=== PATIENT | female | born 1965 | race Caucasian/White ===

== ENCOUNTER 2023-11-19 14:38 | Inpatient (IN) ==
--- NOTE | 2023-11-19 14:52 | Emergency Department Note ---
Impression & Plan Saddle pulmonary embolus, Chest pain, Hypoxia ED Provider Note NAME: STEVEN PEREIRA AGE: 58 SEX: F : 1965 ARRIVES VIA: Ambulance INFORMANT: Patient, EMS ED PROVIDER(S): Chandrakant Guevara DO CHIEF COMPLAINT: Chest pain HPI: Patient is a 58-year-old female who presented to the emergency department with chest pain. The patient describes difficulty breathing. She cannot get a deep breath in. She is currently being treated for a left sided tibial plateau fracture. The patient has a knee immobilizer in place. She does have a remote history of DVT in the past. The patient was found to be tachycardic and hypoxic by the prehospital personnel prior to arrival. Patient denies having any nausea or vomiting. She denies having any swelling in her leg. The patient has not been seen by her family doctor before the symptoms. ROS: See above HPI for pertinent positives & negatives. A total of 10 systems reviewed and were otherwise negative. PAST MEDICAL HISTORY: See Below PAST SURGICAL HISTORY: See Below FAMILY HISTORY: See Below SOCIAL HISTORY: See Below HOME MEDICATIONS: See Below ALLERGIES: See Below VITALS: See Below PHYSICAL EXAMINATION: GENERAL: The patient is awake and alert. The patient is anxious. EYES: The conjunctivae are clear. The pupils are round and reactive. EARS, NOSE, MOUTH AND THROAT: The nose is without any evidence of any deformity. NECK: The neck is nontender and supple. RESPIRATORY: Splinting respirations were noted. There was no conversational dyspnea. CARDIOVASCULAR: Tachycardic and regular heart sounds were noted to auscultation. There is no definite murmur. GASTROINTESTINAL: The abdomen is soft. Abdomen is nontender. MUSCULOSKELETAL/EXTREMITIES: There is a left knee immobilizer in place. SKIN: Skin is warm and dry. There is no significant pedal edema. NEUROLOGIC: Patient is awake alert and oriented x3 MEDICAL DECISION MAKING: The patient is a 58-year-old female who presented to the emergency department for an evaluation of chest pain. The patient remained via ambulance. She has an injury to her lower extremity and she has had a knee immobilizer on. She does have a remote history of DVT after orthopedic injury in the past. The patient was hypoxic and tachycardic. I discussed the patient's laboratory and radiographic studies with her. She was found to have signs of pulmonary embolism with significant clot burden and saddle embolus on CT scan of the chest. She was started on IV heparin. I discussed her condition with the on- call [facility] hospitalist. They discussed the case with the clearing inspector and the decision was made to give the patient thrombolytics for massive pulmonary embolism. The patient was reevaluated multiple times. She was significantly improved on reevaluation. She continued to have tachycardia but her hypotension improved somewhat. Triage Nursing notes reviewed. Prior medical records reviewed Vital Signs: reviewed and remarkable for hypotension tachycardia and hypoxia. Differential diagnosis: Cardiac ischemia, aortic dissection, pulmonary embolism, pneumothorax, pneumonia, pericarditis, myocarditis, esophageal rupture, GERD, cholecystitis, pancreatitis, musculoskeletal, as well as other pathologies. ER treatment provided: See below Diagnostics interpreted by me: ECG: EKG was obtained in the emergency department. My interpretation is sinus tachycardia 139 bpm. There is no ectopy. Nonspecific ST segment abnormalities are noted. No previous tracing was available. Prehospital EKG was reviewed. My interpretation is sinus tachycardia 124 bpm. There is no ectopy. Suspect lead reversal with Q waves noted in leads I and aVL, otherwise this compares similar to the EKG obtained in the emergency department. Cardiac Monitoring: An order was placed for continuous cardiac monitoring. The monitor shows a rate of 127 bpm with sinus tachycardia. Laboratory studies: As stated above and show below. Imaging studies: See below. Radiographic imaging was reviewed by myself Consultation(s): I discussed this case with Dr. Sheriff who is on-call for the hospitalist group. ED COURSE: Procedures: none Critical Care: I have personally spent greater than 55 minutes of critical care time in the direct management of this patient. This includes bedside care, interpretation of diagnostic studies, and testing, discussion with consultants, patient, and family members, and other required patient management activities. This 55 minutes is in excess of all separately billable procedures. Past Med/Surg History Problem List (Updated 11/19/23 @ 19:06 by Chandrakant Guevara DO) Hypoxia (Acute) Chest pain (Acute) Morbid obesity with BMI of 50.0-59.9, adult Pre-diabetes Saddle pulmonary embolus (Acute) Closed fracture of left tibial plateau Medical History DVT (deep venous thrombosis) Social History Smoking Status: Current every day smoker Tobacco Type: Cigarettes Cigarettes Per Day: 10; Second Hand Exposure: No; Hx Alcohol Use: No Hx Substance Use: No Preferred Language: Wolof Communication Ability: Effective Beliefs That Will Affect Care: None Current Living Situation: Alone Feels Safe at Home: Yes Assistive Devices: Denture - Lower Home Meds Home Medications Medication Instructions Recorded Confirmed No Known Home Medications 11/19/23 11/19/23 Results & Data (ED) Vital Signs Vital Signs - 24 hr 11/19/23 14:44 11/19/23 14:44 11/19/23 14:45 Temperature 36.5 C Temperature Source Oral Pulse Rate 126 H Respiratory Rate 22 Respiratory Effort / Characteristics Short of Breath SOB on Exertion Respiratory Depth Normal Blood Pressure 94/71 L Blood Pressure Mean 78 Pulse Oximetry 96 89 L Oxygen Delivery Method Nasal Cannula Room Air Oxygen Flow Rate 2 Sepsis Recent Fever Within 48 Hours No Sepsis New/Unexplained Change in Mental Status No Sepsis Action Taken by Nursing Physician Notified 11/19/23 15:42 Temperature Temperature Source Pulse Rate 117 H Respiratory Rate Respiratory Effort / Characteristics Respiratory Depth Blood Pressure Blood Pressure Mean Pulse Oximetry Oxygen Delivery Method Oxygen Flow Rate Sepsis Recent Fever Within 48 Hours Sepsis New/Unexplained Change in Mental Status Sepsis Action Taken by Assisted Medications Current Medication List: was personally reviewed by me Laboratory Data Attestation: I reviewed the patient's lab results. 11/19/23 14:45 11/19/23 14:45 Lab Results 11/19/23 11/19/23 11/19/23 Range/Units 14:45 14:55 14:57 WBC 9.69 (4.8-10.8) K/ul RBC 5.58 H (4.20-5.40) M/uL Hgb 15.5 (12.0-16.0) g/dl POC Hgb 16.7 H (12.0-16.0) g/dl Hct 48.0 H (37.0-47.0) % POC Hct 49 H (37-47) % MCV 86.0 (80.0-100.0) fL MCH 27.8 (25.0-34.0) pg MCHC 32.3 (32.0-36.0) g/dL RDW Std Deviation 45.6 (36.4-46.3) fL RDW Coeff of Osvaldo 14.4 (11.5-14.5) % Plt Count 214 (130-400) K/uL MPV 9.2 L (9.4-12.4) fL Immature Gran % (Auto) 0.3 % Neut % (Auto) 73.4 % Lymph % (Auto) 17.8 % Kingfisher % (Auto) 6.7 % Eos % (Auto) 1.3 % Baso % (Auto) 0.5 % Neut # (Auto) 7.11 H (1.40-6.50) K/uL Lymph # (Auto) 1.72 (1.20-3.40) K/uL Kingfisher # (Auto) 0.65 H (0.11-0.59) K/uL Eos # (Auto) 0.13 (0.00-0.50) K/uL Baso # (Auto) 0.05 (0.00-0.20) K/uL Immature Gran # (Auto) 0.03 (0.01-0.20) K/uL PT 10.8 (9.0-12.0) Seconds INR 1.0 (0.9-1.1) APTT 28 (21-31) Seconds PTT Ratio 1.0 POC Sodium 138 (135-144) mmol/L Sodium 137 (136-145) mmol/L POC Potassium 4.1 (3.3-5.0) mmol/L Potassium 4.1 (3.5-5.1) mmol/L POC Chloride 104 (101-112) mmol/L Chloride 105 (98-107) mmol/L Carbon Dioxide 26 (21-32) mmol/L POC Total CO2 24 (24-31) mmol/L Anion Gap 6 (3-11) POC Anion Gap 15.0 L (16-25) mmol/L POC BUN 15 (7-18) mg/dl BUN 16 (6-23) mg/dl Creatinine 0.61 (0.6-1.2) mg/dl POC Creatinine 0.6 (0.6-1.3) mg/dl Est Cr Clr Drug Dosing 156.8 ml/min Est GFR ( Amer) 117.5 ml/min Est GFR (Non-Af Amer) 101.3 ml/min BUN/Creatinine Ratio 26.2 H (10-20) Glucose 115 H (70-99(Fasting)) mg/dl POC Glucose (other) 118 H (70-99) mg/dl Calcium 9.1 (8.6-10.3) mg/dl POC Ioniz Calcium Bong 1.19 (1.12-1.32) mmol/l Total Bilirubin 0.4 (0.2-1.0) mg/dl AST 15 (13-39) U/L ALT 11 (7-52) U/L Alkaline Phosphatase 33 L (34-104) U/L Troponin I High Sens 557.8 H* (0-14) pg/ml Total Protein 7.5 (6.0-8.3) gm/dl Albumin 4.0 (3.4-5.0) gm/dl Globulin 3.5 (2.5-4.0) gm/dl Albumin/Globulin Ratio 1.1 (0.9-2) Lipase 11 (11-82) U/L SARS-CoV-2 (PCR) NEGATIVE (Negative) Influenza Type A (PCR) Negative (Neg) Influenza Type B (PCR) Negative (Neg) RSV (RT-PCR) Negative (Neg) Administered Medications Miscellaneous (Icu Protocol For Hyperglycemia) 1 each N/A ACHS ARTHUR Stop: 11/21/23 16:29 Last Admin: 11/19/23 18:00 Dose: Not Given Documented By: GPF Discontinued Medications Heparin Sodium (Porcine) (Heparin Sod (Porcine) 1000 Unit/Ml) 1 units IV NOW ONE Stop: 11/19/23 15:59 Last Admin: 11/19/23 16:48 Dose: Not Given Documented By: ANGUS Heparin Sodium/Dextrose (Heparin Iv Adult Wt-Based Standard W/ Initial Bolus Protocol) 1 each IV Q15M [facility]; Protocol Stop: 11/19/23 16:46 Last Admin: 11/19/23 16:49 Dose: Not Given Documented By: Admin: 11/19/23 16:49 Dose: Not Given Documented By: Admin: 11/19/23 16:49 Dose: Not Given Documented By: Admin: 11/19/23 16:48 Dose: Not Given Documented By: ANGUS Sodium Chloride (Nss) 500 mls @ 999 mls/hr IV .Q31M STA Stop: 11/19/23 15:17 Last Infusion: 11/19/23 16:48 Dose: Infused Documented By: Admin: 11/19/23 16:17 Dose: 999 mls/hr Documented By: ANGUS Sodium Chloride (Nss) 1,000 mls @ 999 mls/hr IV .Q1H1M ONE Stop: 11/19/23 16:42 Last Infusion: 11/19/23 18:00 Dose: Infused Documented By: Admin: 11/19/23 16:16 Dose: 999 mls/hr Documented By: ANGUS Heparin Sodium/Dextrose (Heparin Sodium/Dextrose) 25,000 units in 500 mls @ 0.02 mls/hr IV .Q24H ARTHUR; Protocol Stop: 12/19/23 15:59 Last Admin: 11/19/23 16:48 Dose: Not Given Documented By: ANGUS Alteplase, Recombinant 50 mg/ (EMPTY BAG) 50 mls @ 25 mls/hr IV NOW ONE; Protocol Stop: 11/19/23 18:59 Last Infusion: 11/19/23 18:41 Dose: Infused Documented By: Admin: 11/19/23 17:29 Dose: 25 mls/hr Documented By: ANGUS Ioversol (Optiray 320 125ml) 119 ml IV ONCE ONE Stop: 11/19/23 15:37 Last Admin: 11/19/23 15:37 Dose: 119 ml Documented By: COURTNEY Miscellaneous Information (Dc All Anticoagulants ) 1 each N/A NOW STA Stop: 11/19/23 16:43 Last Admin: 11/19/23 18:04 Dose: 1 each Documented By: JORGE Sodium Chloride (Sodium Chloride 0.9% 50 Ml Bag) 50 ml IV NOW ONE Stop: 11/19/23 17:01 Last Admin: 11/19/23 18:40 Dose: 50 ml Documented By: JORGE Imaging Data Attestation: I personally reviewed and interpreted this imaging study as follows: My Impression: CT angiography of the chest was obtained in the emergency department. My interpretation is saddle pulmonary embolism, final report below. Radiologist's Impression: Chest CTA 11/19/23 14:47 CT angio chest PE protocol CT DOSE: 915.23 mGy.cm HISTORY: 58 years-old Female with Chest Pain, eval for PE. Acute chest pain with shortness of breath TECHNIQUE: Multiple CTA images of the chest were obtained after the intravenous administration of 119 ml Optiray. Coronal and sagittal MIPS were obtained from the axial data set and were submitted for review. All measurements were obtained according to NASCET criteria. A dose lowering technique was utilized adhering to the principles of ALARA. COMPARISON: None. FINDINGS: CTA: Heart is normal in size. No pericardial effusion or thoracic aortic aneurysm. Extensive acute pulmonary emboli is a large central embolus with involvement of the bilateral lobar, segmental and subsegmental branches. There is straightening of the intraventricular septum. CT CHEST: Unremarkable thyroid. Bilateral axillary chain lymphadenopathy includes a 2.7 x 1.5 cm right axillary lymph node. Borderline enlarged subcarinal and hilar lymph nodes. No pneumothorax, pleural effusion, airspace consolidation or pulmonary edema. No suspicious pulmonary nodules or masses. Central airways are patent. Small hiatal hernia. No acute upper abdominal abnormality. No acute fracture. IMPRESSION: 1. Extensive pulmonary emboli including a sagittal embolus with right heart strain. 2. No pleural effusion or pulmonary infarct. 3. Nonspecific bilateral axillary chain lymphadenopathy. ACT 112: Negative or not required by law. The above report was generated using voice recognition software. It may contain grammatical, syntax or spelling errors. Electronically signed by: Jett Garcia M.D. 11/19/2023 4:05 PM Discharge Plan Visit Data Chief Complaint: Cardiac Assessment ED Provider: Chandrakant Guevara Discharge Problem: Saddle pulmonary embolus, Chest pain, Hypoxia Patient Disposition: Admitted As Inpatient Discharge Problem: Saddle pulmonary embolus Qualifiers: Chronicity: acute Acute cor pulmonale presence: with acute cor pulmonale Q ualified Code(s): I26.02 - Saddle embolus of pulmonary artery with acute cor pulmonale Chest pain Qualifiers: Chest pain type: unspecified Qualified Code(s): R07.9 - Chest pain, unspecified
[2023-11-19 15:07] LABS: iSTAT Creatinine 0.6 mg/dl (0.6-1.3); iSTAT Hemoglobin 16.7 g/dl (12.0-16.0); iSTAT Ionized Calcium 1.19 mmol/l (1.12-1.32); iSTAT Potassium 4.1 mmol/L (3.3-5.0)
[2023-11-19 15:22] LABS: Basophils # (auto) 0.05 K/uL (0.00-0.20); Basophils % (auto) 0.5 %; Eosinophils # (auto) 0.13 K/uL (0.00-0.50); Eosinophils % (auto) 1.3 %; Hemoglobin 15.5 g/dl (12.0-16.0); Immature Granulocytes # (auto) 0.03 K/uL (0.01-0.20); Immature Granulocytes % (auto) 0.3 %; Lymphocytes # (auto) 1.72 K/uL (1.20-3.40); Lymphocytes % (auto) 17.8 %; Mean Corpuscular Hemoglobin 27.8 pg (25.0-34.0); Mean Corpuscular Hgb Conc 32.3 g/dL (32.0-36.0); Mean Platelet Volume 9.2 fL (9.4-12.4); Monocytes # (auto) 0.65 K/uL (0.11-0.59); Monocytes % (auto) 6.7 %; Neutrophils # (auto) 7.11 K/uL (1.40-6.50); Neutrophils % (auto) 73.4 %; Platelet Count 214 K/uL (130-400); RDW Coefficient of Variation 14.4 % (11.5-14.5); RDW Standard Deviation 45.6 fL (36.4-46.3); Red Blood Count 5.58 M/uL (4.20-5.40); White Blood Count 9.69 K/ul (4.8-10.8)
[2023-11-19 15:27] LABS: Albumin Globulin Ratio 1.1 (0.9-2); BUN Creatinine Ratio 26.2 (10-20); Bilirubin,Total 0.4 mg/dl (0.2-1.0); Calcium 9.1 mg/dl (8.6-10.3); Creatinine Clr Calc Pharmacy 156.8 ml/min; Est GFR (African American) 117.5 ml/min; Est GFR (Non-African American) 101.3 ml/min; Globulin 3.5 gm/dl (2.5-4.0); Potassium 4.1 mmol/L (3.5-5.1); Total Protein 7.5 gm/dl (6.0-8.3)
[2023-11-19] MEDS: OPTIRAY 320 125ml IV ONE (15:37)
[2023-11-19 15:40] LABS: Troponin I High Sensitivity 557.8 pg/ml (0-14)
[2023-11-19 15:41] LABS: Influenza A virus by PCR Negative (Neg); Influenza B virus by PCR Negative (Neg); RSV by PCR Negative (Neg); SARS CoV2 RNA(COVID-19) Ceph NEGATIVE (Negative)
[2023-11-19] MEDS ORDERED: Heparin IV Adult Wt-Based Standard w/ INITIAL Bolus Protocol IV STA (15:42)
[2023-11-19 15:43] LABS: Partial Thromboplastin Time 28 Seconds (21-31); Prothrombin Time 10.8 Seconds (9.0-12.0)
--- NOTE | 2023-11-19 15:57 | History & Physical Report ---
Date of Service November 19, 2023 Assessment & Plan (1) Saddle pulmonary embolus: Plan: Acute Massive PE - hypotensive on arrival to ER 94/71, saddle PE on CTA with suspected acute migration due to sudden onset of symptoms - Sudden onset of dyspnea, hypoxia, and chest discomfort ~12:00pm 11/19/23. Pt w/ LEFT leg immobilized and with swelling after a knee injury. -No contraindications to thrombolysis no known history of ICH, no known history of AVM, no intracranial neoplasm, no history of ischemic stroke, no aortic dissection seen, no recent bleeding, no surgery in the last 30 days - Discussed w/ patient, and with ditch inspector. Due to hypotension, large clot burden, and significant heart strain consistent with massive PE (although BP borderline and not strictly <90) did discuss risks/benefits of thrombolytic therapy. On shared decision making will pursue half dose TPA and admit to ICU. Blood consent signed. - SPO2 improved on oxygen, but conversationally dyspneic Half dose TNK ordered. Once anti- Xa falls below 0.4 May start heparin GTT full dose nomogram Troponin elevated consistent with heart strain, troponin trended, echo ordered. Chest pain-free at time of admission. Fibrinogen level ordered (2) Pre-diabetes: Plan: PreDM - History of preDM, not on any antiglycemics - A1C pending - ICU hyperglycemia protocol (3) Closed fracture of left tibial plateau: Plan: L Knee Injury - Pt reports she had a left distal knee injury on November 01, reportedly a kneecap/lower leg fracture. Following with Dr. Leavitt and pending a CT as outpatient - Pt aware of risk of bleeding w/ injury and TNKase as above. >7 days from injury. Plan Diet: Heart healthy, carb consistent Disposition: ICU CODE STATUS: Full code DVT prophylaxis: Anticoagulated History of Present Illness Primary Care Provider: NO PCP 58yo F who presented with chest pain, shortness of breath, trop 560. Recommended for admission for acute PE. Seen at the bedside. She reports November 01 she slipped and fell to her left knee and broke part of her knee. Did not require cast but has been in an immobilizer since due to this injury. Is following with Dr. Leavitt at [facility] , had an x- ray, and is pending a outpatient CT for reassessment. She does use tobacco products. She does not have a history of CO or heart disease. No known sleep apnea. She did have a blood clot after a knee injury as a teenager, think she may have been on an OCP at the time. BMI 51.3. She reports that at around 12-12 30 she had she had sudden onset of severe shortness of breath, some chest discomfort, and even conversation caused her to be more short of breath. She was initially hypotensive in the ER. She reports after laying back and being calm she felt a little better and her chest pain resolved, but remains with severe shortness of breath on exertion and conversation. She has no history of stroke. No surgery in the last 30 days. Denies history of spine surgery. No history of bleeding or bleeding problems and has never had a blood transfusion. No history of cancer, neoplasm, or AVMs to her knowledge. She reports her only medical issue is prediabetes. Blood pressure is usually normal to slightly elevated but is not on antihypertensives. Given her acute onset of symptoms, hypotension of 94/71, tachycardia, and saddle PE with evidence of heart strain thrombolysis was discussed with patient. Risk and benefits of full dose, half dose thrombolysis versus anticoagulation alone were discussed. Risks including bleeding, need for blood transfusion, bleeding from her left knee injury, and rare incidence of intracranial bleed were reviewed. Potential benefits including reduction of clot burden which may both improve blood pressure and dyspnea, with the caveat that while her blood pre ssure was not less than 90 was borderline on initial assessment and she is significantly dyspneic even with conversation were reviewed. On shared decision making patient would like to pursue half dose TNKase therapy. Medical History: Reviewed Medications: Reviewed Surgical History: Reviewed Family history: Reviewed Allergies: Reviewed Social History: History of tobacco use. Denies alcohol use Code Status: Full code Home Medications Medication Instructions Recorded Confirmed Type No Known Home Medications 11/19/23 11/19/23 History Past Med/Surg History Problem List Pre-diabetes Saddle pulmonary embolus Closed fracture of left tibial plateau Medical History DVT (deep venous thrombosis) Social History Smoking Status: Current every day smoker Tobacco Type: Cigarettes Preferred Language: Citizen Of [place] Feels Safe at Home: Yes Physical Exam Physical Exam: General: A&Ox3. NAD. Cooperative. Conversationally dyspneic HEENT: Atraumatic, normocephalic. Vision and hearing grossly intact Pulm: Diminished but grossly clear. On nasal cannula Cardiac: regular, tachycardic. , -mrg. Radial pulses intact and symmetrical. Abdominal: Nontender, nondistended, soft. BS present. Ext: Left lower extremity in knee immobilizer. Obese. No pitting edema. Results & Data Results & Data Vital Signs (Past 12 Hours) Vital Signs Temp Pulse Resp BP Pulse Ox O2 Del Method O2 Flow Rate 11/19/23 15:42 117 H 11/19/23 14:45 89 L Room Air 11/19/23 14:44 36.5 C 126 H 22 94/71 L 96 Nasal Cannula 2 PG Care Time/CCT Total # of Minutes Spent Total Time Spent with Patient: Total time spent is greater than 50% in coordination of care (as documented) at patient's floor/unit and/or counseling patient: Coding Level of Care Code 74252 INT INP/OBS CARE 3/75MIN Diagnoses Saddle pulmonary embolus I26.92 Pre-diabetes R73.03 Closed fracture of left tibial plateau S82.142A
--- NOTE | 2023-11-19 16:06 | CT Scan Report ---
CT angio chest PE protocol CT DOSE: 915.23 mGy.cm HISTORY: 58 years-old Female with Chest Pain, eval for PE. Acute chest pain with shortness of breat h TECHNIQUE: Multiple CTA images of the chest were obtained after the intravenous administration of 119 ml Optiray. Coronal and sagittal MIPS were obtained from the axial data set and were submitted for review. All measurements were obtained according to NASCET criteria. A dose lowering technique was u tilized adhering to the principles of ALARA. COMPARISON: None. FINDINGS: CTA: Heart is normal in size. No pericardial effusion or thoracic aortic aneurysm. Extensive acute pulmona ry emboli is a large central embolus with involvement of the bilateral lobar, segmental and subsegmen mitra branches. There is straightening of the intraventricular septum. CT CHEST: Unremarkable thyroid. Bilateral axillary chain lymphadenopathy includes a 2.7 x 1.5 cm right axillary lymph node. Borderline enlarged subcarinal and hilar lymph nodes. No pneumothorax, pleural effusion, airspace consolidation or pulmonary edema. No suspicious pulmonary nodules or masses. Central airway s are patent. Small hiatal hernia. No acute upper abdominal abnormality. No acute fracture. IMPRESSION: 1. Extensive pulmonary emboli including a sagittal embolus with right heart strain. 2. No pleural effusion or pulmonary infarct. 3. Nonspecific bilateral axillary chain lymphadenopathy. ACT 112: Negative or not required by law. The above report was generated using voice recognition software. It may contain grammatical, syntax o r spelling errors. Electronically signed by: Jett Garcia M.D. 11/19/2023 4:05 PM
[2023-11-19] MEDS: SODIUM CHLORIDE 0.9% 1,000 ML IV ONE (16:16)
[2023-11-19] MEDS: SODIUM CHLORIDE 0.9% 500 ML IV STA (16:17)
[2023-11-19] MEDS ORDERED: ALTEPLASE, RECOMBINANT 50 MG in EMPTY BAG 0 ML IV STA (16:41)
[2023-11-19] MEDS ORDERED: DC ALL ANTICOAGULANTS STA (16:41)
[2023-11-19] MEDS ORDERED: SODIUM CHLORIDE 0.9% 50 ML BAG IV STA (16:41)
[2023-11-19] MEDS ORDERED: PRIMARY PLUMSET, PE LINED TUBING, 113 IN, NON-DEHP (2260-0500) IV STA (16:42)
[2023-11-19] MEDS: Heparin IV Adult Wt-Based Standard w/ INITIAL Bolus Protocol IV SCH (16:48)
[2023-11-19] MEDS: HEPARIN SODIUM/DEXTROSE 25,000 UNITS/500 ML BAG IV SCH ×2 (16:48→21:06)
[2023-11-19] MEDS: HEPARIN SOD (PORCINE) 1000 UNIT/ML IV ONE (16:48)
--- NOTE | 2023-11-19 16:56 | Critical Care Consultation ---
Date of Consultation November 19, 2023 Assessment & Plan (1) Morbid obesity with BMI of 50.0-59.9, adult: (2) Saddle pulmonary embolus: (3) Pre-diabetes: (4) Closed fracture of left tibial plateau: Plan Reason Critically Ill: 58-year-old female with saddle pulmonary embolism PLAN: Neuro: Acute anxiety -Tearful and somewhat fearful given critical nature of diagnosis Resp: Exertional dyspnea -Wean supplemental oxygen as tolerated CV: Saddle pulmonary embolism -PESI score 126, category 5 high risk 30-day mortality -Half dose tPA administration and with transition to heparin -Follow-up echocardiogram Fluids/Renal: Hemoconcentrated -2 L crystalloid volume expansion GI/Nutrition: Okay for diet Heme: Second provoked venous thromboembolism -Defer outpatient systemic anticoagulation choice of warfarin versus NOAC to primary team: Risk factor includes significant morbid obesity with BMI greater than 50 DVT prophylaxis: tPA with follow-up heparin -Consented for blood products Endocrine: ICU hyperglycemia protocol Reported prediabetes -Follow-up A1c Vascular access: Peripheral IVs Code Status: Full code Disposition: ICU Supervising Physician Co-Signing Physician Notes I have personally spent 45 minutes of critical care time in the direct management of this patient. This is a life/limb threatening event. This includes time spent evaluating patient, direct bedside care, chart review, placing orders, interpretation of diagnostic studies, discussion with consultants, patient, and/or family members regarding treatment decisions, as well as other required patient management activities. This time is exclusive of all separately billable procedures, and teaching time and separate from and in addition to any other critical care service time. 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 Patient has been in a left knee immobilizer for 3 weeks after a mechanical fall. The patient reports that she has a small fracture in the knee which has necessitated being immobile in the knee immobilizer. She has not had any bleeding disorders, recent surgery, the trauma approximately 3 weeks ago. We discussed risks and benefits of systemic thrombolysis as well as catheter directed thrombolysis as well as full dose systemic thrombolysis and regular anticoagulation. We discussed there is a theoretical increased risk of bleeding in the left lower extremity at the site of trauma however I think this is negligible given that we are approximately 3 weeks out from the injury. Patient also consents for blood products should they be required. Home Medications Medication Instructions Recorded Confirmed Type No Known Home Medications 11/19/23 11/19/23 History Patient History Medical History DVT (deep venous thrombosis) Social History Smoking Status: Current every day smoker Tobacco Type: Cigarettes Preferred Language: Hebrew Feels Safe at Home: Yes Physical Exam Physical Exam: General: Alert. nontoxic. Skin: Warm, dry, Head: Atraumatic Ears, nose, mouth and throat: airway patent Cardiovascular: Normal peripheral perfusion Respiratory: no respiratory distress Gastrointestinal: Non distended, Musculoskeletal: No deformity, no obvious cords, no obvious lymphedema Results & Data Results & Data Vital Signs (Past 12 Hours) Vital Signs Temp Pulse Resp BP Pulse Ox O2 Del Method O2 Flow Rate 11/19/23 15:42 117 H 11/19/23 14:45 89 L Room Air 11/19/23 14:44 36.5 C 126 H 22 94/71 L 96 Nasal Cannula 2 Critical Care Results & Data Vital Signs (Past 12 Hours) Vital Signs Temp Pulse Pulse Resp BP BP Pulse Ox 11/19/23 16:47 125 H 20 104/90 98 11/19/23 15:42 117 H 11/19/23 14:45 89 L 11/19/23 14:44 36.5 C 126 H 22 94/71 L 96 O2 Del Method O2 Flow Rate 11/19/23 16:47 Nasal Cannula 2 11/19/23 15:42 11/19/23 14:45 Room Air 11/19/23 14:44 Nasal Cannula 2 Lab & Micro Results (Past 24 Hours) RBC 5.58 M/uL (4.20-5.40) H 11/19/23 WBC 9.69 K/ul (4.8-10.8) 11/19/23 Hgb 15.5 g/dl (12.0-16.0) 11/19/23 Hct 48.0 % (37.0-47.0) H 11/19/23 MCV 86.0 fL (80.0-100.0) 11/19/23 MCH 27.8 pg (25.0-34.0) 11/19/23 MCHC 32.3 g/dL (32.0-36.0) 11/19/23 RDW Standard Deviation 45.6 fL (36.4-46.3) 11/19/23 RDW Coefficient of Variation 14.4 % (11.5-14.5) 11/19/23 Plt Count 214 K/uL (130-400) 11/19/23 MPV 9.2 fL (9.4-12.4) L 11/19/23 Neutrophils (%) (Auto) 73.4 % 11/19/23 Lymphocytes (%) (Auto) 17.8 % 11/19/23 Monocytes # (Auto) 0.65 K/uL (0.11-0.59) H 11/19/23 Eosinophils # (Auto) 0.13 K/uL (0.00-0.50) 11/19/23 Immature Granulocyte % (Auto) 0.3 % 11/19/23 Neutrophils # (Auto) 7.11 K/uL (1.40-6.50) H 11/19/23 Lymphocytes # (Auto) 1.72 K/uL (1.20-3.40) 11/19/23 Monocytes # (Auto) 0.65 K/uL (0.11-0.59) H 11/19/23 Eosinophils # (Auto) 0.13 K/uL (0.00-0.50) 11/19/23 Basophils # (Auto) 0.05 K/uL (0.00-0.20) 11/19/23 Immature Granulocyte # (Auto) 0.03 K/uL (0.01-0.20) 4 Na 137 mmol/L (136-145) 11/19/23 K 4.1 mmol/L (3.5-5.1) 11/19/23 Cl 105 mmol/L (98-107) 11/19/23 CO2 26 mmol/L (21-32) 11/19/23 Anion Gap 6 (3-11) 11/19/23 BUN 16 mg/dl (6-23) 11/19/23 Creatinine 0.61 mg/dl (0.6-1.2) 11/19/23 Estimated GFR ( Amer) 117.5 ml/min 11/19/23 Estimated GFR (Non-Af Amer) 101.3 ml/min 11/19/23 BUN/Creatinine Ratio 26.2 (10-20) H 11/19/23 Glu 115 mg/dl (70-99(Fasting)) H 11/19/23 Ca 9.1 mg/dl (8.6-10.3) 11/19/23 Total Bilirubin 0.4 mg/dl (0.2-1.0) 11/19/23 AST 15 U/L (13-39) 11/19/23 ALT 11 U/L (7-52) 11/19/23 Alkaline Phosphatase 33 U/L (34-104) L 11/19/23 TP 7.5 gm/dl (6.0-8.3) 11/19/23 Albumin 4.0 gm/dl (3.4-5.0) 11/19/23 Globulin 3.5 gm/dl (2.5-4.0) 11/19/23 Albumin/Globulin Ratio 1.1 (0.9-2) 11/19/23 Calcium Level 9.1 mg/dl (8.6-10.3) 11/19/23 14:45 Prothromb Time International Ratio 1.0 (0.9-1.1) 11/19/23 14:4 5 Diagnostic Findings (Past 24 Hours) Chest CTA 11/19/23 14:47 CT angio chest PE protocol CT DOSE: 915.23 mGy.cm HISTORY: 58 years-old Female with Chest Pain, eval for PE. Acute chest pain with shortness of breath TECHNIQUE: Multiple CTA images of the chest were obtained after the intravenous administration of 119 ml Optiray. Coronal and sagittal MIPS were obtained from the axial data set and were submitted for review. All measurements were obtained according to NASCET criteria. A dose lowering technique was utilized adhering to the principles of ALARA. COMPARISON: None. FINDINGS: CTA: Heart is normal in size. No pericardial effusion or thoracic aortic aneurysm. Extensive acute pulmonary emboli is a large central embolus with involvement of the bilateral lobar, segmental and subsegmental branches. There is straightening of the intraventricular septum. CT CHEST: Unremarkable thyroid. Bilateral axillary chain lymphadenopathy includes a 2.7 x 1.5 cm right axillary lymph node. Borderline enlarged subcarinal and hilar lymph nodes. No pneumothorax, pleural effusion, airspace consolidation or pulmonary edema. No suspicious pulmonary nodules or masses. Central airways are patent. Small hiatal hernia. No acute upper abdominal abnormality. No acute fracture. IMPRESSION: 1. Extensive pulmonary emboli including a sagittal embolus with right heart strain. 2. No pleural effusion or pulmonary infarct. 3. Nonspecific bilateral axillary chain lymphadenopathy. ACT 112: Negative or not required by law. The above report was generated using voice recognition software. It may contain grammatical, syntax or spelling errors. Electronically signed by: Jett Garcia M.D. 11/19/2023 4:05 PM I & O Totals 24 Hours 11/18/23 11/19/23 11/20/23 06:59 06:59 06:59 Intake Total 500 / 500 Balance 500 / 500 Cumulative 11/19/23 14:26 thru 11/19/23 16:48 Intake Total 500 Balance 500 RT Ventilator Mngmt (Last Documented) Ventilator Ordered Settings Respiratory Rate 20 11/19/23 16:47 Ventilator - PT Measurements Respiratory Rate 20 Coding Level of Care Code 79084 CRITICAL CARE 1ST 30-74M Diagnoses Morbid obesity with BMI of 50.0-59.9, adult E66.01; Z68.43 Acute saddle pulmonary embolism with acute cor pulmonale I26.02 Chronicity: acute Acute cor pulmonale presence: with acute cor pulmonale Pre-diabetes R73.03 Closed fracture of left tibial plateau S82.142A (2) Saddle pulmonary embolus Chronicity: acute Acute cor pulmonale presence: with acute cor pulmonale Qu alified Code(s): I26.02 - Saddle embolus of pulmonary artery with acute cor pulmonale
[2023-11-19] MEDS: ALTEPLASE, RECOMBINANT 50 MG in EMPTY BAG 0 ML IV ONE (17:29)
[2023-11-19] MEDS: PRIMARY PLUMSET, PE LINED TUBING, 113 IN, NON-DEHP (2260-0500) IV STA (17:30)
[2023-11-19] MEDS: ICU Protocol for HYPERglycemia SCH (18:00)
[2023-11-19] MEDS: DC ALL ANTICOAGULANTS STA (18:04)
[2023-11-19] MEDS ORDERED: Heparin IV Adult Wt-Based Low-Dose *NO* INITIAL Bolus Protocol IV SCH (18:11)
[2023-11-19 18:35] LABS: ANTI-Xa, UFH(UnfractionatedHep < 0.10 IU/ml (0.3-0.7); Fibrinogen 454 mg/dl (184-400)
[2023-11-19] MEDS: SODIUM CHLORIDE 0.9% 50 ML BAG IV ONE (18:40)
[2023-11-19 20:27] LABS: Hematocrit (blood only) 46.2 % (37.0-47.0); Hemoglobin 14.9 g/dl (12.0-16.0); Mean Corpuscular Hemoglobin 27.7 pg (25.0-34.0); Mean Corpuscular Hgb Conc 32.3 g/dL (32.0-36.0); Mean Corpuscular Volume 85.9 fL (80.0-100.0); Mean Platelet Volume 9.1 fL (9.4-12.4); Platelet Count 199 K/uL (130-400); RDW Coefficient of Variation 14.4 % (11.5-14.5); RDW Standard Deviation 45.1 fL (36.4-46.3); Red Blood Count 5.38 M/uL (4.20-5.40); White Blood Count 11.68 K/ul (4.8-10.8)
[2023-11-19 20:53] LABS: ANTI-Xa, UFH(UnfractionatedHep < 0.10 IU/ml (0.3-0.7)
[2023-11-20 03:49] LABS: Albumin Globulin Ratio 1.2 (0.9-2); Albumin Level 3.6 gm/dl (3.4-5.0); BUN Creatinine Ratio 23.3 (10-20); Bilirubin,Total 0.5 mg/dl (0.2-1.0); Calcium 8.7 mg/dl (8.6-10.3); Creatinine Clr Calc Pharmacy 159.4 ml/min; Est GFR (African American) 118.1 ml/min; Est GFR (Non-African American) 101.9 ml/min; Globulin 3.1 gm/dl (2.5-4.0); Potassium 4.1 mmol/L (3.5-5.1); Total Protein 6.7 gm/dl (6.0-8.3)
[2023-11-20 03:52] LABS: Basophils # (auto) 0.04 K/uL (0.00-0.20); Basophils % (auto) 0.4 %; Eosinophils # (auto) 0.11 K/uL (0.00-0.50); Eosinophils % (auto) 1.2 %; Hematocrit (blood only) 44.7 % (37.0-47.0); Hemoglobin 14.5 g/dl (12.0-16.0); Immature Granulocytes # (auto) 0.02 K/uL (0.01-0.20); Immature Granulocytes % (auto) 0.2 %; Lymphocytes # (auto) 3.27 K/uL (1.20-3.40); Lymphocytes % (auto) 34.4 %; Mean Corpuscular Hemoglobin 27.8 pg (25.0-34.0); Mean Corpuscular Hgb Conc 32.4 g/dL (32.0-36.0); Mean Corpuscular Volume 85.6 fL (80.0-100.0); Mean Platelet Volume 9.3 fL (9.4-12.4); Monocytes # (auto) 0.63 K/uL (0.11-0.59); Monocytes % (auto) 6.6 %; Neutrophils # (auto) 5.44 K/uL (1.40-6.50); Neutrophils % (auto) 57.2 %; Platelet Count 200 K/uL (130-400); RDW Coefficient of Variation 14.4 % (11.5-14.5); RDW Standard Deviation 45.1 fL (36.4-46.3); Red Blood Count 5.22 M/uL (4.20-5.40); White Blood Count 9.51 K/ul (4.8-10.8)
[2023-11-20 07:07] LABS: Estimated Average Glucose 131 mg/dl; Hemoglobin A1C 6.2 % (4.5-5.6)
--- NOTE | 2023-11-20 08:31 | Critical Care Progress Note ---
Date of Service November 20, 2023 Assessment & Plan (1) Morbid obesity with BMI of 50.0-59.9, adult: (2) Saddle pulmonary embolus: (3) Pre-diabetes: (4) Closed fracture of left tibial plateau: Plan Reason Critically Ill: 58-year-old female with saddle pulmonary embolism PLAN: Neuro: Acute anxiety: Resolved Resp: Exertional dyspnea -Wean supplemental oxygen as tolerated CV: Saddle pulmonary embolism -PESI score 126, category 5 high risk 30-day mortality -Half dose tPA administration and with transition to heparin -echocardiogram report pending -Anticipate patient may benefit from pulmonary hypertension medical management GI/Nutrition: Okay for diet Heme: Second provoked venous thromboembolism -Defer outpatient systemic anticoagulation choice of warfarin versus NOAC to primary team: Risk factor includes significant morbid obesity with BMI greater than 50 DVT prophylaxis: heparin infusion -Consented for blood products Endocrine: ICU hyperglycemia protocol Reported prediabetes -A1c 6.2 MSK: Possible left tibial plateau fracture -Obtain CT left knee for further evaluation -Routine EOC consult to facilitate follow-up and weightbearing/activity recommendations Vascular access: Peripheral IVs Code Status: Full code Disposition: Stable for downgrade out of ICU Admission and Anticipated Discharge Date Admission Date: November 19, 2023 Subjective Patient reports she is following with [facility], there was anticipation to obtain a CT scan of the left lower extremity to evaluate whether she needs surgical correction. Patient also reports she very much desires to get out of bed and use commode. Feels better than yesterday. Physical Exam Physical Exam: General: Alert. nontoxic. Skin: Warm, dry, Head: Atraumatic Ears, nose, mouth and throat: airway patent Cardiovascular: Normal peripheral perfusion, mild tachycardia on bedside monitor Respiratory: no respiratory distress Gastrointestinal: Non distended, Musculoskeletal: No deformity, no obvious cords, no obvious lymphedema Results & Data Results & Data Vital Signs (Past 12 Hours) Vital Signs Temp Pulse Pulse Resp BP BP Pulse Ox 11/20/23 08:00 11/20/23 08:00 11/20/23 08:00 108 H 11/20/23 07:00 36.7 C 108 H 20 107/83 97 11/20/23 06:00 114 H 15 100/81 98 11/20/23 05:00 97/77 L 11/20/23 05:00 103 H 16 98 11/20/23 04:18 106 H 21 95 06/07/24 04:14 95/69 L 11/20/23 04:00 36.9 C 11/20/23 03:00 108 H 19 97 11/20/23 03:00 94/78 L 11/20/23 02:12 108 H 24 102/63 95 11/20/23 01:48 111 H 19 96 11/20/23 01:12 112 H 21 95 11/20/23 01:00 111/80 11/20/23 00:00 122/87 11/20/23 00:00 112 H 11/20/23 00:00 36.8 C 11/19/23 23:30 113 H 21 122/87 93 11/19/23 23:00 113 H 22 92 11/19/23 22:00 122/93 11/19/23 21:57 114 H 24 97 11/19/23 21:33 116 H 21 97 11/19/23 21:32 124/98 11/19/23 20:36 128/76 11/19/23 20:36 121 H 26 H 98 Pulse Ox O2 Del Method O2 Del Method O2 Flow Rate O2 Flow Rate 11/20/23 08:00 Nasal Cannula 2 11/20/23 08:00 90 Nasal Cannula 2 11/20/23 08:00 11/20/23 07:00 Room Air 11/20/23 06:00 11/20/23 05:00 11/20/23 05:00 11/20/23 04:18 11/20/23 04:14 11/20/23 04:00 11/20/23 03:00 11/20/23 03:00 11/20/23 02:12 11/20/23 01:48 11/20/23 01:12 11/20/23 01:00 11/20/23 00:00 11/20/23 00:00 11/20/23 00:00 11/19/23 23:30 11/19/23 23:00 11/19/23 22:00 11/19/23 21:57 11/19/23 21:33 11/19/23 21:32 11/19/23 20:36 11/19/23 20:36 Critical Care Results & Data Vital Signs (Past 12 Hours) Vital Signs Temp Pulse Pulse Resp BP BP Pulse Ox 11/20/23 08:00 11/20/23 08:00 11/20/23 08:00 11/20/23 08:00 108 H 11/20/23 07:00 36.7 C 108 H 20 107/83 97 11/20/23 06:00 114 H 15 100/81 98 11/20/23 05:00 97/77 L 11/20/23 05:00 103 H 16 98 11/20/23 04:18 106 H 21 95 11/20/23 04:14 95/69 L 11/20/23 04:00 36.9 C 11/20/23 03:00 108 H 19 97 11/20/23 03:00 94/78 L 11/20/23 02:12 108 H 24 102/63 95 11/20/23 01:48 111 H 19 96 11/20/23 01:12 112 H 21 95 11/20/23 01:00 111/80 11/20/23 00:00 122/87 11/20/23 00:00 112 H 11/20/23 00:00 36.8 C 11/19/23 23:30 113 H 21 122/87 93 11/19/23 23:00 113 H 22 92 11/19/23 22:00 122/93 11/19/23 21:57 114 H 24 97 11/19/23 21:33 116 H 21 97 11/19/23 21:32 124/98 Pulse Ox O2 Del Method O2 Del Method O2 Flow Rate O2 Flow Rate 11/20/23 08:00 Nasal Cannula 11/20/23 08:00 Nasal Cannula 2 11/20/23 08:00 90 Nasal Cannula 2 11/20/23 08:00 11/20/23 07:00 Room Air 11/20/23 06:00 11/20/23 05:00 11/20/23 05:00 11/20/23 04:18 11/20/23 04:14 11/20/23 04:00 11/20/23 03:00 11/20/23 03:00 11/20/23 02:12 11/20/23 01:48 11/20/23 01:12 11/20/23 01:00 11/20/23 00:00 11/20/23 00:00 11/20/23 00:00 11/19/23 23:30 11/19/23 23:00 11/19/23 22:00 11/19/23 21:57 11/19/23 21:33 11/19/23 21:32 Lab & Micro Results (Past 24 Hours) RBC 5.22 M/uL (4.20-5.40) 11/20/23 WBC 9.51 K/ul (4.8-10.8) 11/20/23 Hgb 14.5 g/dl (12.0-16.0) 11/20/23 Hct 44.7 % (37.0-47.0) 11/20/23 MCV 85.6 fL (80.0-100.0) 11/20/23 MCH 27.8 pg (25.0-34.0) 11/20/23 MCHC 32.4 g/dL (32.0-36.0) 11/20/23 RDW Standard Deviation 45.1 fL (36.4-46.3) 11/20/23 RDW Coefficient of Variation 14.4 % (11.5-14.5) 11/20/23 Plt Count 200 K/uL (130-400) 11/20/23 MPV 9.3 fL (9.4-12.4) L 11/20/23 Neutrophils (%) (Auto) 57.2 % 11/20/23 Lymphocytes (%) (Auto) 34.4 % 11/20/23 Monocytes # (Auto) 0.63 K/uL (0.11-0.59) H 11/20/23 Eosinophils # (Auto) 0.11 K/uL (0.00-0.50) 11/20/23 Immature Granulocyte % (Auto) 0.2 % 11/20/23 Neutrophils # (Auto) 5.44 K/uL (1.40-6.50) 11/20/23 Lymphocytes # (Auto) 3.27 K/uL (1.20-3.40) 11/20/23 Monocytes # (Auto) 0.63 K/uL (0.11-0.59) H 11/20/23 Eosinophils # (Auto) 0.11 K/uL (0.00-0.50) 11/20/23 Basophils # (Auto) 0.04 K/uL (0.00-0.20) 11/20/23 Immature Granulocyte # (Auto) 0.02 K/uL (0.01-0.20) 4 Na 137 mmol/L (136-145) 11/20/23 K 4.1 mmol/L (3.5-5.1) 11/20/23 Cl 106 mmol/L (98-107) 11/20/23 CO2 26 mmol/L (21-32) 11/20/23 Anion Gap 5 (3-11) 11/20/23 BUN 14 mg/dl (6-23) 11/20/23 Creatinine 0.60 mg/dl (0.6-1.2) 11/20/23 Estimated GFR ( Amer) 118.1 ml/min 11/20/23 Estimated GFR (Non-Af Amer) 101.9 ml/min 11/20/23 BUN/Creatinine Ratio 23.3 (10-20) H 11/20/23 Glu 115 mg/dl (70-99(Fasting)) H 11/20/23 Ca 8.7 mg/dl (8.6-10.3) 11/20/23 Total Bilirubin 0.5 mg/dl (0.2-1.0) 11/20/23 AST 18 U/L (13-39) 11/20/23 ALT 10 U/L (7-52) 11/20/23 Alkaline Phosphatase 30 U/L (34-104) L 11/20/23 TP 6.7 gm/dl (6.0-8.3) 11/20/23 Albumin 3.6 gm/dl (3.4-5.0) 11/20/23 Globulin 3.1 gm/dl (2.5-4.0) 11/20/23 Albumin/Globulin Ratio 1.2 (0.9-2) 11/20/23 Calcium Level 8.7 mg/dl (8.6-10.3) 11/20/23 03:14 Prothromb Time International Ratio 1.0 (0.9-1.1) 11/19/23 14:4 5 Diagnostic Findings (Past 24 Hours) Chest CTA 11/19/23 14:47 CT angio chest PE protocol CT DOSE: 915.23 mGy.cm HISTORY: 58 years-old Female with Chest Pain, eval for PE. Acute chest pain with shortness of breath TECHNIQUE: Multiple CTA images of the chest were obtained after the intravenous administration of 119 ml Optiray. Coronal and sagittal MIPS were obtained from the axial data set and were submitted for review. All measurements were obtained according to NASCET criteria. A dose lowering technique was utilized adhering to the principles of ALARA. COMPARISON: None. FINDINGS: CTA: Heart is normal in size. No pericardial effusion or thoracic aortic aneurysm. Extensive acute pulmonary emboli is a large central embolus with involvement of the bilateral lobar, segmental and subsegmental branches. There is straightening of the intraventricular septum. CT CHEST: Unremarkable thyroid. Bilateral axillary chain lymphadenopathy includes a 2.7 x 1.5 cm right axillary lymph node. Borderline enlarged subcarinal and hilar lymph nodes. No pneumothorax, pleural effusion, airspace consolidation or pulmonary edema. No suspicious pulmonary nodules or masses. Central airways are patent. Small hiatal hernia. No acute upper abdominal abnormality. No acute fracture. IMPRESSION: 1. Extensive pulmonary emboli including a sagittal embolus with right heart strain. 2. No pleural effusion or pulmonary infarct. 3. Nonspecific bilateral axillary chain lymphadenopathy. ACT 112: Negative or not required by law. The above report was generated using voice recognition software. It may contain grammatical, syntax or spelling errors. Electronically signed by: Jett Garcia M.D. 11/19/2023 4:05 PM I & O Totals 24 Hours 11/19/23 11/20/23 11/21/23 06:59 06:59 06:59 Intake Total 2029.200 / 2029.200 Output Total 51 / 51 Balance 1978.200 / 1978.200 Cumulative 11/19/23 14:26 thru 11/20/23 06:50 Intake Total 2029.200 Output Total 51 Balance 1978.200 RT Ventilator Mngmt (Last Documented) Ventilator Ordered Settings Respiratory Rate 20 11/20/23 07:00 Ventilator - PT Measurements Respiratory Rate 20 Coding Level of Care Code 41061 SUB INP/OBS CARE 3/50MIN Diagnoses Morbid obesity with BMI of 50.0-59.9, adult E66.01; Z68.43 Acute saddle pulmonary embolism with acute cor pulmonale I26.02 Chronicity: acute Acute cor pulmonale presence: with acute cor pulmonale Pre-diabetes R73.03 Closed fracture of left tibial plateau S82.142A (2) Saddle pulmonary embolus Chronicity: acute Acute cor pulmonale presence: with acute cor pulmonale Qualified Code(s): I26.02 - Saddle embolus of pulmonary artery with acute cor pulmonale
[2023-11-20 10:42] LABS: ANTI-Xa, UFH(UnfractionatedHep 0.29 IU/ml (0.3-0.7)
--- NOTE | 2023-11-20 13:17 | CT Scan Report ---
CT knee LT wo con HISTORY: 58 years-old Female hx fx s/p fall tib plateau acute pain of the left knee status post fall . Acute fracture of the lateral tibial plateau. COMPARISON: None TECHNIQUE: Multiple axial CT images of the left knee were obtained without IV contrast. Additional 3- D rendered images were obtained and submitted for review. A dose lowering technique was used consiste nt with the principals of ELSY. FINDINGS: There is an acute comminuted intra-articular fracture involving the mid to posterior aspects of the l ateral tibial plateau demonstrating approximately 4 mm articular depression. Vertical components of t his fracture extend distally into the proximal metaphysis, approximately 4-5 cm. Otherwise there is n o significant displacement. No additional acute fracture or dislocation. Mildly demineralized appeara nce of the bones. There is mild patellofemoral and lateral with moderate medial compartment osteoarth ritis. No intra-articular loose body. Spurring of the tibial spines. Probable small osteochondromata of the proximal tibia. Tendons and ligaments are not well evaluated by CT technique. Mild to moderate anterior prominent sub cutaneous edema. Small joint effusion. Medial meniscus is extruded into the medial meniscal gutter, l ikely chronic. IMPRESSION: 1. Acute comminuted mildly depressed lateral tibial plateau fracture with fracture extension into the proximal tibial metaphysis. No significant displacement. 2. No additional acute fracture or dislocation. 3. Tricompartmental osteoarthritis, moderate within the medial compartment. 4. Likely posttraumatic subcutaneous edema with small joint effusion. ACT 112: Negative or not required by law. The above report was generated using voice recognition software. It may contain grammatical, syntax o r spelling errors. Dictated: 11/20/2023 11:41 AM Transcribed: 11/20/2023 11:59 AM Carlos [id number] [email or web address] Electronically signed by: Jett Garcia M.D. 11/20/2023 1:15 PM
--- NOTE | 2023-11-20 13:30 | Hospitalist Progress Note ---
Date of Service November 20, 2023 Assessment & Plan (1) Saddle pulmonary embolus: Plan: Saddle PE associated with hypotension and right ventricular strain pattern Patient presented with sudden onset of chest discomfort along with shortness of breath Patient was treated with half dose TNKase, followed by heparin drip Echocardiogram pending Right ventricular strain pattern noted on CT along with elevated troponin Plan to switch to p.o. Eliquis upon discharge (2) Pre-diabetes: Plan: PreDM - History of preDM, not on any antiglycemics - A1C 6.2 - ICU hyperglycemia protocol (3) Closed fracture of left tibial plateau: Plan: L Knee Injury - Pt reports she had a left distal knee injury on November 01, reportedly a kneecap/lower leg fracture. Following with Dr. Leavitt and pending a CT as outpatient - Pt aware of risk of bleeding w/ injury and TNKase as above. >[address] left knee reviewed Plan CODE STATUS: Full code DVT prophylaxis: Anticoagulated Admission and Anticipated Discharge Date Admission Date: November 19, 2023 Subjective Patient says she feels better overall. The chest discomfort has resolved. She is not short of breath currently in bed. Review of Systems Review of Systems: All systems reviewed & are unremarkable except as noted in Subjective Physical Exam Physical Exam: General: Awake, conversant, morbidly obese Heart: S1, S2/regular rate and rhythm, no murmur rubs or gallops Lungs: Clear to auscultation bilaterally. Normal effort Abdomen: Soft/nontender/nondistended. No hepatosplenomegaly Extremities: No clubbing/cyanosis. No edema Behavior: Appropriate, cooperative Results & Data Results & Data Vital Signs (Past 12 Hours) Vital Signs Temp Pulse Pulse Resp BP BP Pulse Ox 11/20/23 10:00 99 H 22 93 11/20/23 09:01 121/101 H 11/20/23 09:00 104 H 19 11/20/23 08:24 103 H 22 94 11/20/23 08:00 11/20/23 08:00 11/20/23 08:00 11/20/23 08:00 108 H 11/20/23 07:06 104 H 18 96 11/20/23 07:00 36.7 C 108 H 20 107/83 97 11/20/23 06:00 114 H 15 100/81 98 11/20/23 05:00 97/77 L 11/20/23 05:00 103 H 16 98 11/20/23 04:18 106 H 21 95 11/20/23 04:14 95/69 L 11/20/23 04:00 36.9 C 11/20/23 03:00 108 H 19 97 11/20/23 03:00 94/78 L 11/20/23 02:12 108 H 24 102/63 95 11/20/23 01:48 111 H 19 96 Pulse Ox O2 Del Method O2 Del Method O2 Flow Rate O2 Flow Rate 11/20/23 10:00 11/20/23 09:01 11/20/23 09:00 11/20/23 08:24 11/20/23 08:00 Nasal Cannula 11/20/23 08:00 Nasal Cannula 2 11/20/23 08:00 90 Nasal Cannula 2 11/20/23 08:00 11/20/23 07:06 11/20/23 07:00 Room Air 11/20/23 06:00 11/20/23 05:00 11/20/23 05:00 11/20/23 04:18 11/20/23 04:14 11/20/23 04:00 11/20/23 03:00 11/20/23 03:00 11/20/23 02:12 11/20/23 01:48 Laboratory Results Abnormal lab results 11/19/23 11/19/23 11/19/23 Range/Units 14:45 14:55 16:42 WBC (4.8-10.8) K/ul RBC 5.58 H (4.20-5.40) M/uL POC Hgb 16.7 H (12.0-16.0) g/dl Hct 48.0 H (37.0-47.0) % POC Hct 49 H (37-47) % MPV 9.2 L (9.4-12.4) fL Neut # (Auto) 7.11 H (1.40-6.50) K/uL Burnet # (Auto) 0.65 H (0.11-0.59) K/uL Fibrinogen 454 H (184-400) mg/dl Heparin Anti-Xa, Unfract < 0.10 L (0.3-0.7) IU/ml POC Anion Gap 15.0 L (16-25) mmol/L BUN/Creatinine Ratio 26.2 H (10-20) Glucose 115 H (70-99(Fasting)) mg/dl POC Glucose (70-99) mg/dl POC Glucose (other) 118 H (70-99) mg/dl Hemoglobin A1c (4.5-5.6) % Alkaline Phosphatase 33 L (34-104) U/L Troponin I High Sens 557.8 H* 1182.4 H* D (0-14) pg/ml 11/19/23 11/20/23 11/20/23 Range/Units 20:01 00:32 00:38 WBC 11.68 H (4.8-10.8) K/ul RBC (4.20-5.40) M/uL POC Hgb (12.0-16.0) g/dl Hct (37.0-47.0) % POC Hct (37-47) % MPV 9.1 L (9.4-12.4) fL Neut # (Auto) (1.40-6.50) K/uL [place] # (Auto) (0.11-0.59) K/uL Fibrinogen (184-400) mg/dl Heparin Anti-Xa, Unfract < 0.10 L (0.3-0.7) IU/ml POC Anion Gap (16-25) mmol/L BUN/Creatinine Ratio (10-20) Glucose (70-99(Fasting)) mg/dl POC Glucose 121 H (70-99) mg/dl POC Glucose (other) (70-99) mg/dl Hemoglobin A1c (4.5-5.6) % Alkaline Phosphatase (34-104) U/L Troponin I High Sens 1488.5 H* D (0-14) pg/ml 11/20/23 11/20/23 11/20/23 Range/Units 03:14 06:23 09:59 WBC (4.8-10.8) K/ul RBC (4.20-5.40) M/uL POC Hgb (12.0-16.0) g/dl Hct (37.0-47.0) % POC Hct (37-47) % MPV 9.3 L (9.4-12.4) fL Neut # (Auto) (1.40-6.50) K/uL [place] # (Auto) 0.63 H (0.11-0.59) K/uL Fibrinogen (184-400) mg/dl Heparin Anti-Xa, Unfract 0.20 L 0.29 L (0.3-0.7) IU/ml POC Anion Gap (16-25) mmol/L BUN/Creatinine Ratio 23.3 H (10-20) Glucose 115 H (70-99(Fasting)) mg/dl POC Glucose (70-99) mg/dl POC Glucose (other) (70-99) mg/dl Hemoglobin A1c 6.2 H (4.5-5.6) % Alkaline Phosphatase 30 L (34-104) U/L Troponin I High Sens 865.7 H* D (0-14) pg/ml 11/20/23 Range/Units 12:19 WBC (4.8-10.8) K/ul RBC (4.20-5.40) M/uL POC Hgb (12.0-16.0) g/dl Hct (37.0-47.0) % POC Hct (37-47) % MPV (9.4-12.4) fL Neut # (Auto) (1.40-6.50) K/uL [place] # (Auto) (0.11-0.59) K/uL Fibrinogen (184-400) mg/dl Heparin Anti-Xa, Unfract (0.3-0.7) IU/ml POC Anion Gap (16-25) mmol/L BUN/Creatinine Ratio (10-20) Glucose (70-99(Fasting)) mg/dl POC Glucose (70-99) mg/dl POC Glucose (other) (70-99) mg/dl Hemoglobin A1c (4.5-5.6) % Alkaline Phosphatase (34-104) U/L Troponin I High Sens 429.0 H* D (0-14) pg/ml Diagnostic Findings Chest CTA 11/19/23 14:47 CT angio chest PE protocol CT DOSE: 915.23 mGy.cm HISTORY: 58 years-old Female with Chest Pain, eval for PE. Acute chest pain with shortness of breath TECHNIQUE: Multiple CTA images of the chest were obtained after the intravenous administration of 119 ml Optiray. Coronal and sagittal MIPS were obtained from the axial data set and were submitted for review. All measurements were obtained according to NASCET criteria. A dose lowering technique was utilized adhering to the principles of ALARA. COMPARISON: None. FINDINGS: CTA: Heart is normal in size. No pericardial effusion or thoracic aortic aneurysm. Extensive acute pulmonary emboli is a large central embolus with involvement of the bilateral lobar, segmental and subsegmental branches. There is straightening of the intraventricular septum. CT CHEST: Unremarkable thyroid. Bilateral axillary chain lymphadenopathy includes a 2.7 x 1.5 cm right axillary lymph node. Borderline enlarged subcarinal and hilar lymph nodes. No pneumothorax, pleural effusion, airspace consolidation or pulmonary edema. No suspicious pulmonary nodules or masses. Central airways are patent. Small hiatal hernia. No acute upper abdominal abnormality. No acute fracture. IMPRESSION: 1. Extensive pulmonary emboli including a sagittal embolus with right heart strain. 2. No pleural effusion or pulmonary infarct. 3. Nonspecific bilateral axillary chain lymphadenopathy. ACT 112: Negative or not required by law. The above report was generated using voice recognition software. It may contain grammatical, syntax or spelling errors. Electronically signed by: Jett Garcia M.D. 11/19/2023 4:[address] 11/20/23 08:37 CT knee LT wo con HISTORY: 58 years-old Female hx fx s/p fall tib plateau acute pain of the left knee status post fall. Acute fracture of the lateral tibial plateau. COMPARISON: None TECHNIQUE: Multiple axial CT images of the left knee were obtained without IV contrast. Additional 3-D rendered images were obtained and submitted for review. A dose lowering technique was used consistent with the principals of ALARA. FINDINGS: There is an acute comminuted intra-articular fracture involving the mid to posterior aspects of the lateral tibial plateau demonstrating approximately 4 mm articular depression. Vertical components of this fracture extend distally into the proximal metaphysis, approximately 4-5 cm. Otherwise there is no significant displacement. No additional acute fracture or dislocation. Mildly demineralized appearance of the bones. There is mild patellofemoral and lateral with moderate medial compartment osteoarthritis. No intra-articular loose body. Spurring of the tibial spines. Probable small osteochondromata of the proximal tibia. Tendons and ligaments are not well evaluated by CT technique. Mild to moderate a nterior prominent subcutaneous edema. Small joint effusion. Medial meniscus is extruded into the medial meniscal gutter, likely chronic. IMPRESSION: 1. Acute comminuted mildly depressed lateral tibial plateau fracture with fracture extension into the proximal tibial metaphysis. No significant displacement. 2. No additional acute fracture or dislocation. 3. Tricompartmental osteoarthritis, moderate within the medial compartment. 4. Likely posttraumatic subcutaneous edema with small joint effusion. ACT 112: Negative or not required by law. The above report was generated using voice recognition software. It may contain grammatical, syntax or spelling errors. Dictated: 11/20/2023 11:41 AM Transcribed: 11/20/2023 11:59 AM Carlos [id number] [facility] Electronically signed by: Jett Garcia M.D. 11/20/2023 1:15 PM PG Care Time/CCT Total # of Minutes Spent Total Time Spent with Patient: Total time spent is greater than 50% in coordination of care (as documented) at patient's floor/unit and/or counseling patient: Coding Level of Care Code 19489 SUB INP/OBS CARE 2/35MIN Diagnoses Acute saddle pulmonary embolism with acute cor pulmonale I26.02 Chronicity: acute Acute cor pulmonale presence: with acute cor pulmonale Pre-diabetes R73.03 Closed fracture of left tibial plateau S82.142A (1) Saddle pulmonary embolus Chronicity: acute Acute cor pulmonale presence: with acute cor pulmonale Qualified Code(s): I26.02 - Saddle embolus of pulmonary artery with acute cor pulmonale
[2023-11-20 17:49] LABS: ANTI-Xa, UFH(UnfractionatedHep 0.66 IU/ml (0.3-0.7)
[2023-11-21 04:05] LABS: Basophils # (auto) 0.05 K/uL (0.00-0.20); Basophils % (auto) 0.6 %; Eosinophils # (auto) 0.13 K/uL (0.00-0.50); Eosinophils % (auto) 1.6 %; Hematocrit (blood only) 45.2 % (37.0-47.0); Hemoglobin 14.6 g/dl (12.0-16.0); Immature Granulocytes # (auto) 0.01 K/uL (0.01-0.20); Immature Granulocytes % (auto) 0.1 %; Lymphocytes # (auto) 2.78 K/uL (1.20-3.40); Lymphocytes % (auto) 33.2 %; Mean Corpuscular Hemoglobin 28.1 pg (25.0-34.0); Mean Corpuscular Hgb Conc 32.3 g/dL (32.0-36.0); Mean Corpuscular Volume 86.9 fL (80.0-100.0); Mean Platelet Volume 9.2 fL (9.4-12.4); Monocytes # (auto) 0.59 K/uL (0.11-0.59); Neutrophils # (auto) 4.81 K/uL (1.40-6.50); Neutrophils % (auto) 57.5 %; Platelet Count 178 K/uL (130-400); RDW Coefficient of Variation 14.5 % (11.5-14.5); RDW Standard Deviation 46.1 fL (36.4-46.3); White Blood Count 8.37 K/ul (4.8-10.8)
[2023-11-21 04:23] LABS: Albumin Globulin Ratio 1.2 (0.9-2); Albumin Level 3.5 gm/dl (3.4-5.0); BUN Creatinine Ratio 25.5 (10-20); Bilirubin,Total 0.4 mg/dl (0.2-1.0); Calcium 8.8 mg/dl (8.6-10.3); Creatinine Clr Calc Pharmacy 172.6 ml/min; Est GFR (African American) 121.5 ml/min; Est GFR (Non-African American) 104.9 ml/min; Total Protein 6.5 gm/dl (6.0-8.3)
[2023-11-21 04:26] LABS: ANTI-Xa, UFH(UnfractionatedHep 0.19 IU/ml (0.3-0.7)
[2023-11-21] MEDS: HEPARIN SOD (PORCINE) 1000 UNIT/ML IV ONE (05:35)
--- NOTE | 2023-11-21 06:12 | Electrocardiogram Report ---
Test Reason : Blood Pressure : / mmHG Vent. Rate : 139 BPM Atrial Rate : 139 BPM P-R Int : 126 ms QRS Dur : 086 ms QT Int : 296 ms P-R-T Axes : 070 062 049 degrees QTc Int : 450 ms Sinus tachycardia Nonspecific ST abnormality Abnormal ECG No previous ECGs available Confirmed by Thien Solorzano ([id number]) on 11/21/2023 6:12:23 AM Referred By: Confirmed By:Thien Solorzano
[2023-11-21 11:50] LABS: ANTI-Xa, UFH(UnfractionatedHep 0.34 IU/ml (0.3-0.7)
--- NOTE | 2023-11-21 13:45 | Hospitalist Progress Note ---
Date of Service November 21, 2023 Assessment & Plan (1) Saddle pulmonary embolus: Plan: Saddle PE with acute cor pulmonale Associated with hypotension and right ventricular strain pattern Patient presented with sudden onset of chest discomfort along with shortness of breath Patient was treated with half dose TNKase, followed by heparin drip Echocardiogram shows severely reduced RV systolic function. Continue heparin drip for now Plan to switch to p.o. Eliquis 11/21 Will encourage mobilization and ambulation tomorrow Currently no chest pain or shortness of breath. Vital signs are stable. Saturating 95% on room air at rest Will need a two-step test prior to discharge as well. (2) Pre-diabetes: Plan: PreDM - History of preDM, not on any antiglycemics - A1C 6.2 - ICU hyperglycemia protocol (3) Closed fracture of left tibial plateau: Plan: L Knee Injury - Pt reports she had a left distal knee injury on November 01, reportedly a kneecap/lower leg fracture. Following with Dr. Leavitt and pending a CT as outpatient - Pt aware of risk of bleeding w/ injury and TNKase as above. >[address] left knee reviewed Awaiting PT/OT evaluation Plan CODE STATUS: Full code DVT prophylaxis: Anticoagulated Admission and Anticipated Discharge Date Admission Date: November 19, 2023 Subjective Patient feels well overall. Denies chest pain or shortness of breath. She got out of bed to the bedside chair and back. Did not feel overtly short of breath with this exertion. Review of Systems Review of Systems: All systems reviewed & are unremarkable except as noted in Subjective Physical Exam Physical Exam: General: Awake, conversant, morbidly obese Heart: S1, S2/regular rate and rhythm, no murmur rubs or gallops Lungs: Clear to auscultation bilaterally. Normal effort Abdomen: Soft/nontender/nondistended. No hepatosplenomegaly Extremities: No clubbing/cyanosis. No edema Behavior: Appropriate, cooperative Results & Data Results & Data Vital Signs (Past 12 Hours) Vital Signs Temp Pulse Pulse Resp BP BP Pulse Ox 11/21/23 11:53 36.6 C 77 18 130/93 95 11/21/23 11:00 87 11/21/23 08:24 104 H 15 93 11/21/23 08:00 11/21/23 08:00 11/21/23 08:00 37.1 C 11/21/23 07:15 84 13 95 11/21/23 06:36 86 19 129/84 94 11/21/23 05:18 88 21 148/90 H 93 11/21/23 04:08 80 19 145/85 H 94 11/21/23 03:17 83 18 137/98 93 11/21/23 02:06 91 H 20 88 L 11/21/23 02:00 108/91 O2 Del Method O2 Del Method 11/21/23 11:53 Room Air 11/21/23 11:00 11/21/23 08:24 11/21/23 08:00 Room Air 11/21/23 08:00 Room Air 11/21/23 08:00 11/21/23 07:15 11/21/23 06:36 11/21/23 05:18 11/21/23 04:08 11/21/23 03:17 11/21/23 02:06 11/21/23 02:00 Laboratory Results Abnormal lab results 11/21/23 Range/Units 03:52 MPV 9.2 L (9.4-12.4) fL Heparin Anti-Xa, Unfract 0.19 L (0.3-0.7) IU/ml Creatinine 0.55 L (0.6-1.2) mg/dl BUN/Creatinine Ratio 25.5 H (10-20) Glucose 108 H (70-99(Fasting)) mg/dl Alkaline Phosphatase 26 L (34-104) U/L PG Care Time/CCT Total # of Minutes Spent Total Time Spent with Patient: Total time spent is greater than 50% in coordination of care (as documented) at patient's floor/unit and/or counseling patient: Coding Level of Care Code 02950 SUB INP/OBS CARE 2/35MIN Diagnoses Acute saddle pulmonary embolism with acute cor pulmonale I26.02 Chronicity: acute Acute cor pulmonale presence: with acute cor pulmonale Pre-diabetes R73.03 Closed fracture of left tibial plateau S82.142A (1) Saddle pulmonary embolus Chronicity: acute Acute cor pulmonale presence: with acute cor pulmonale Qualified Code(s): I26.02 - Saddle embolus of pulmonary artery with acute cor pulmonale
--- NOTE | 2023-11-22 08:46 | XRay Report ---
LEFT KNEE 2 VIEWS CLINICAL HISTORY: Left knee injury. FINDINGS: AP and crosstable lateral views of the left knee are correlated with CT scan of the knee da neris 11/20/2023. The skeletal structures are well-mineralized. Again seen is a comminuted fracture of th e lateral tibial plateau. There is only minimal depression of fragments. There is a joint effusion wi th lipohemarthrosis. Iwae-[id number] tricompartmental degenerative joint space narrowing is noted, g reatest in the medial and patellofemoral margins. Soft tissue edema is seen around the knee. IMPRESSION: Unchanged appearance of a lateral tibial plateau fracture as compared to the recent CT sc an. Electronically signed by: Juan Chisholm M.D. 11/22/2023 8:44 AM
[2023-11-22] MEDS: APIXABAN 5 MG TABLET PO SCH (09:04)
[2023-11-22 09:36] LABS: Basophils # (auto) 0.03 K/uL (0.00-0.20); Basophils % (auto) 0.4 %; Eosinophils % (auto) 1.3 %; Hematocrit (blood only) 44.4 % (37.0-47.0); Hemoglobin 14.5 g/dl (12.0-16.0); Immature Granulocytes # (auto) 0.02 K/uL (0.01-0.20); Immature Granulocytes % (auto) 0.3 %; Lymphocytes # (auto) 2.05 K/uL (1.20-3.40); Lymphocytes % (auto) 27.1 %; Mean Corpuscular Hemoglobin 28.1 pg (25.0-34.0); Mean Corpuscular Hgb Conc 32.7 g/dL (32.0-36.0); Mean Platelet Volume 9.3 fL (9.4-12.4); Monocytes # (auto) 0.49 K/uL (0.11-0.59); Monocytes % (auto) 6.5 %; Neutrophils # (auto) 4.87 K/uL (1.40-6.50); Neutrophils % (auto) 64.4 %; Platelet Count 219 K/uL (130-400); RDW Coefficient of Variation 14.5 % (11.5-14.5); RDW Standard Deviation 45.8 fL (36.4-46.3); Red Blood Count 5.16 M/uL (4.20-5.40); White Blood Count 7.56 K/ul (4.8-10.8)
[2023-11-22 09:45] LABS: Albumin Globulin Ratio 1.2 (0.9-2); Albumin Level 3.9 gm/dl (3.4-5.0); BUN Creatinine Ratio 21.9 (10-20); Bilirubin,Total 0.5 mg/dl (0.2-1.0); Calcium 9.4 mg/dl (8.6-10.3); Creatinine Clr Calc Pharmacy 145.9 ml/min; Est GFR (African American) 115.6 ml/min; Est GFR (Non-African American) 99.8 ml/min; Globulin 3.2 gm/dl (2.5-4.0); Potassium 4.2 mmol/L (3.5-5.1); Total Protein 7.1 gm/dl (6.0-8.3)
--- NOTE | 2023-11-22 09:45 | Orthopedic Consultation ---
Date of Consultation November 22, 2023 Assessment & Plan (1) Closed fracture of left tibial plateau: Patient has a left tibial plateau fracture with mild depression. She would like to continue care with Dr. Leavitt. Recommended to continue to be nonweightbearing left lower extremity. Hinged range of motion brace when out of bed. Range of motion of the left knee as tolerated. Continue use of the walker. Physical therapy and Occupational Therapy while she is here. She is going to be on Eliquis at time of discharge due to her saddle pulmonary embolus. Advised her to call Dr. Leavitt's office tomorrow to let them know that the CT scan has been performed so he can determine further treatment. She is in agreement with this. I can also [place] text him a message that has been performed and she needs outpatient or inpatient follow-up. She thinks that she may go home tomorrow. Would continue to be out of work. Follow-up with [facility] orthopedics as necessary. She understands and agrees with the plan. Findings and plan discussed with Dr. Payne. I spent approximately 30 minutes with patient obtaining history, chart review, Lab review, x-ray and CT review, discussing plan and reinforcing nonweightbearing. History of Present Illness Reason for Consultation: Left tibial plateau fracture Attending Physician: Summer Singh MD History of Present Illness Patient was admitted to [facility] with a saddle pulmonary embolism on November. She states that while she was up "walking around" she became lightheaded, short of breath and very dizzy. She states she felt like she was going to pass out. She called 911 and was brought directly to [facility]. She states that she fell while at work on November 02, 2023. 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 She was unable to bear weight or get up from the fall. An ambulance was brought to pick her up and she was taken to [facility]. While in the ER she had x-rays of her left knee which found a left tibial plateau fracture. She was placed in a knee immobilizer and advised to follow-up with [facility], Dr. Leavitt as an outpatient. She was seen by Dr. Leavitt on Saturday, November 04, 2023. He recommended nonweightbearing and gave her hinged range of motion brace. She was also allowed to do range of motion 0 to 30 degrees. She was not placed on any DVT prophylaxis. A CT scan was ordered but she has not been able to get that as of yet. She states over the last few days her knee is actually felt better. She has been doing well maintaining the nonweightbearing. She has been using a walker to assist with ambulation. Prior to her injury to her left knee she has not used a walker or any ambulatory aid. She does live alone. She has no follow-up scheduled with Dr. Leavitt because her CT scan had not been performed yet. She has not had any physical therapy as an outpatient. She has been taking Tylenol for pain. She states she was also placed on Celebrex and advised to take that twice a day instead of once a day as she normally does. Since she is been in the hospital she is feeling much better. She has been on a heparin drip but is getting switched to Eliquis later today. She does think she is probably going home by tomorrow. Allergies Allergy/AdvReac Type Severity Reaction Status Date / Time No Known Allergies Allergy Unverified 11/20/23 11:40 Home Medications Medication Instructions Recorded Confirmed Type No Known Home Medications 11/19/23 11/19/23 History Patient History Medical History DVT (deep venous thrombosis) Social History Smoking Status: Current every day smoker Tobacco Type: Cigarettes Cigarettes Per Day: 10; Second Hand Exposure: No; Hx Alcohol Use: No Hx Substance Use: No Preferred Language: Zimbabwean Communication Ability: Effective Beliefs That Will Affect Care: None Current Living Situation: Alone Feels Safe at Home: Yes Assistive Devices: Denture - Lower Review of Systems Review of Systems: as per HPI. Physical Exam Musculoskeletal: Exam focused on bilateral lower extremities: She has full painless range of motion of her left and right hip. She has no edema and either extremity. Dorsalis pedis and posterior tibial pulses are 1+. Sensation is normal throughout bilateral lower extremities. She is able to independently straight leg raise her right knee comfortably without any discomfort. She is also able to do that to the left knee and hold against resistance but does cause some mild discomfort in the lateral portion of her left knee. She is able to perform a quad set. She does have a trace to small effusion on her left knee. No warmth, erythema or ecchymosis. She has no effusion to the right knee. Calfs are supple and nontender. Full ankle range of motion and normal strength. Active range of motion of the right knee is to about 110 degrees. Active flexion of the left knee is to about 40 degrees comfortably. She has a stable ligamentous exam to her left knee with no laxity and good endpoints. It is difficult to assess anterior and posterior drawer. Negative Saniya although discomfort while this test is being performed. Results & Data Vital Signs (Past 12 Hours) Vital Signs Temp Pulse Pulse Resp BP Pulse Ox O2 Del Method 11/22/23 08:00 77 11/22/23 07:30 36.6 C 79 18 127/72 92 Room Air 11/22/23 03:24 36.5 C 83 18 120/82 97 Room Air 11/21/23 22:54 36.5 C 67 18 136/80 95 Room Air 11/21/23 22:01 92 H Laboratory Results 11/22/23 11/21/23 Range/Units 09:08 11:17 WBC 7.56 (4.8-10.8) K/ul RBC 5.16 (4.20-5.40) M/uL Hgb 14.5 (12.0-16.0) g/dl Hct 44.4 (37.0-47.0) % MCV 86.0 (80.0-100.0) fL MCH 28.1 (25.0-34.0) pg MCHC 32.7 (32.0-36.0) g/dL RDW Std Deviation 45.8 (36.4-46.3) fL RDW Coeff of Osvaldo 14.5 (11.5-14.5) % Plt Count 219 (130-400) K/uL MPV 9.3 L (9.4-12.4) fL Immature Gran % (Auto) 0.3 % Neut % (Auto) 64.4 % Lymph % (Auto) 27.1 % [place] % (Auto) 6.5 % Eos % (Auto) 1.3 % Baso % (Auto) 0.4 % Neut # (Auto) 4.87 (1.40-6.50) K/uL Lymph # (Auto) 2.05 (1.20-3.40) K/uL [place] # (Auto) 0.49 (0.11-0.59) K/uL Eos # (Auto) 0.10 (0.00-0.50) K/uL Baso # (Auto) 0.03 (0.00-0.20) K/uL Immature Gran # (Auto) 0.02 (0.01-0.20) K/uL Heparin Anti-Xa, Unfract Pending 0.34 (0.3-0.7) IU/ml Sodium Pending Potassium Pending Chloride Pending Carbon Dioxide Pending Anion Gap Pending BUN Pending Creatinine Pending Est Cr Clr Drug Dosing Pending Est GFR ( Amer) Pending Est GFR (Non-Af Amer) Pending BUN/Creatinine Ratio Pending Glucose Pending Calcium Pending Total Bilirubin Pending AST Pending ALT Pending Alkaline Phosphatase Pending Total Protein Pending Albumin Pending Globulin Pending Albumin/Globulin Ratio Pending Diagnostic Findings LEFT KNEE 2 VIEWS CLINICAL HISTORY: Left knee injury. FINDINGS: AP and crosstable lateral views of the left knee are correlated with CT scan of the knee dated 11/20/2023. The skeletal structures are well- mineralized. Again seen is a comminuted fracture of the lateral tibial plateau. There is only minimal depression of fragments. There is a joint effusion with lipohemarthrosis. [id number] tricompartmental degenerative joint space narrowing is noted, greatest in the medial and patellofemoral margins. Soft tissue edema is seen around the knee. IMPRESSION: Unchanged appearance of a lateral tibial plateau fracture as compared to the recent CT scan. CT knee LT wo con HISTORY: 58 years-old Female hx fx s/p fall tib plateau acute pain of the left knee status post fall. Acute fracture of the lateral tibial plateau. COMPARISON: None TECHNIQUE: Multiple axial CT images of the left knee were obtained without IV contrast. Additional 3-D rendered images were obtained and submitted for review. A dose lowering technique was used consistent with the principals of ELSY. FINDINGS: There is an acute comminuted intra-articular fracture involving the mid to posterior aspects of the lateral tibial plateau demonstrating approximately 4 mm articular depression. Vertical components of this fracture extend distally into the proximal metaphysis, approximately 4-5 cm. Otherwise there is no significant displacement. No additional acute fracture or dislocation. Mildly demineralized appearance of the bones. There is mild patellofemoral and lateral with moderate medial compartment osteoarthritis. No intra-articular loose body. Spurring of the tibial spines. Probable small osteochondromata of the proximal tibia. Tendons and ligaments are not well evaluated by CT technique. Mild to moderate anterior prominent subcutaneous edema. Small joint effusion. Medial meniscus is extruded into the medial meniscal gutter, likely chronic. IMPRESSION: 1. Acute comminuted mildly depressed lateral tibial plateau fracture with fracture extension into the proximal tibial metaphysis. No significant displacement. 2. No additional acute fracture or dislocation. 3. Tricompartmental osteoarthritis, moderate within the medial compartment. 4. Likely posttraumatic subcutaneous edema with small joint effusion.
[2023-11-22 09:53] LABS: ANTI-Xa, UFH(UnfractionatedHep 0.21 IU/ml (0.3-0.7)
--- NOTE | 2023-11-22 12:27 | Hospitalist Progress Note ---
Date of Service November 22, 2023 Assessment & Plan (1) Saddle pulmonary embolus: Plan: Saddle PE with acute cor pulmonale Associated with hypotension and right ventricular strain pattern Patient presented with sudden onset of chest discomfort along with shortness of breath Patient was treated with half dose TNKase, followed by heparin drip Echocardiogram shows severely reduced RV systolic function. Heparin drip discontinued today. Patient was switched to p.o. Eliquis today 11/21. This PE was triggered by immobilization due to left knee fracture. Currently no chest pain or shortness of breath. Vital signs are stable. Saturating 95% on room air at rest Will need a two-step test prior to discharge (2) Pre-diabetes: Plan: PreDM - History of preDM, not on any antiglycemics - A1C 6.2 (3) Closed fracture of left tibial plateau: Plan: L Knee Injury - Pt reports she had a left distal knee injury on November 01, reportedly a kneecap/lower leg fracture. Following with Dr. Leavitt CT left knee reviewed Orthopedics involved to determine weightbearing status PT/OT on board. Order from orthopedics says no weightbearing on the left leg. Her mobility and ambulation will need to be evaluated prior to discharge. Plan CODE STATUS: Full code DVT prophylaxis: Anticoagulated Admission and Anticipated Discharge Date Admission Date: November 19, 2023 Subjective Patient feels well. Denies chest pain or shortness of breath today. She was sitting in the bedside recliner. Review of Systems Review of Systems: All systems reviewed & are unremarkable except as noted in Subjective Physical Exam Physical Exam: General: Awake, conversant, morbidly obese Heart: S1, S2/regular rate and rhythm, no murmur rubs or gallops Lungs: Clear to auscultation bilaterally. Normal effort Abdomen: Soft/nontender/nondistended. No hepatosplenomegaly Extremities: No clubbing/cyanosis. No edema Behavior: Appropriate, cooperative Results & Data Results & Data Vital Signs (Past 12 Hours) Vital Signs Temp Pulse Pulse Resp BP Pulse Ox O2 Del Method 11/22/23 11:19 36.6 C 86 18 142/99 H 95 Room Air 11/22/23 08:00 77 11/22/23 07:30 36.6 C 79 18 127/72 92 Room Air 11/22/23 03:24 36.5 C 83 18 120/82 97 Room Air PG Care Time/CCT Total # of Minutes Spent Total Time Spent with Patient: Total time spent is greater than 50% in coordination of care (as documented) at patient's floor/unit and/or counseling patient: Coding Level of Care Code 72117 SUB INP/OBS CARE 2/35MIN Diagnoses Acute saddle pulmonary embolism with acute cor pulmonale I26.02 Chronicity: acute Acute cor pulmonale presence: with acute cor pulmonale Pre-diabetes R73.03 Closed fracture of left tibial plateau S82.142A (1) Saddle pulmonary embolus Chronicity: acute Acute cor pulmonale presence: with acute cor pulmonale Qualified Code(s): I26.02 - Saddle embolus of pulmonary artery with acute cor pulmonale
[2023-11-23] MEDS: ACETAMINOPHEN 325 MG TAB PO PRN (10:12)
--- NOTE | 2023-11-23 13:45 | Hospitalist Progress Note ---
Date of Service November 23, 2023 Assessment & Plan (1) Saddle pulmonary embolus: Plan: Saddle PE with acute cor pulmonale Associated with hypotension and right ventricular strain pattern Patient presented with sudden onset of chest discomfort along with shortness o f breath Patient was treated with half dose TNKase, followed by heparin drip Echocardiogram shows severely reduced RV systolic function. Heparin drip discontinued today. Patient was switched to p.o. Eliquis today 11/21. This PE was triggered by immobilization due to left knee fracture. Currently no chest pain or shortness of breath. Vital signs are stable. Saturating 95% on room air at rest Will need a two-step test prior to discharge transition to eliquis (2) Pre-diabetes: Plan: PreDM - History of preDM, not on any antiglycemics - A1C 6.2 (3) Closed fracture of left tibial plateau: Plan: L Knee Injury - Pt reports she had a left distal knee injury on November 01, reportedly a kneecap/lower leg fracture. Following with Dr. Leavitt CT left knee reviewed Orthopedics involved to determine weightbearing status PT/OT on board. Order from orthopedics says no weightbearing on the left leg. Her mobility and ambulation will need to be evaluated prior to discharge. possibly will need rehab , has steps at her house (4) Morbid obesity with BMI of 50.0-59.9, adult: Plan: weight loss, diet Plan CODE STATUS: Full code DVT prophylaxis: Anticoagulated Admission and Anticipated Discharge Date Admission Date: November 19, 2023 Subjective Patient feels well. Denies chest pain or shortness of breath today. reports knee pain Review of Systems Review of Systems: All systems reviewed & are unremarkable except as noted in HPI & below Physical Exam Physical Exam: head atraumatic neck supple chest CTA heart S1S2 regular abdomen soft, nt, nd, bs present extremities left leg immobilized Results & Data Results & Data Vital Signs (Past 12 Hours) Vital Signs Temp Pulse Resp BP Pulse Ox O2 Del Method 11/23/23 11:39 36.5 C 83 16 138/95 95 Room Air 11/23/23 07:48 36.5 C 82 16 137/93 94 Room Air 11/23/23 04:21 36.9 C 80 16 93 Room Air 11/23/23 02:47 36.5 C 93 H 18 128/92 90 Room Air PG Care Time/CCT Total # of Minutes Spent Total Time Spent with Patient: Total time spent is greater than 50% in coordination of care (as documented) at patient's floor/unit and/or counseling patient: Coding Level of Care Code 66779 SUB INP/OBS CARE 2/35MIN Diagnoses Acute saddle pulmonary embolism with acute cor pulmonale I26.02 Chronicity: acute Acute cor pulmonale presence: with acute cor pulmonale Pre-diabetes R73.03 Closed fracture of left tibial plateau S82.142A Morbid obesity with BMI of 50.0-59.9, adult E66.01; Z68.43 (1) Saddle pulmonary embolus Chronicity: acute Acute cor pulmonale presence: with acute cor pulmonale Qualified Code(s): I26.02 - Saddle embolus of pulmonary artery with acute cor pulmonale
[2023-11-23] MEDS: oxyCODONE HCL IR 5 MG TAB (IMMEDIATE RELEASE) PO PRN (14:45)
[2023-11-24] MEDS: CETIRIZINE HCL 10 MG TABLET PO ONE (12:36)
--- NOTE | 2023-11-24 12:36 | Electrocardiogram Report ---
Test Reason : Blood Pressure : / mmHG Vent. Rate : 086 BPM Atrial Rate : 086 BPM P-R Int : 132 ms QRS Dur : 082 ms QT Int : 416 ms P-R-T Axes : 065 029 053 degrees QTc Int : 497 ms Normal sinus rhythm Nonspecific T wave abnormality Prolonged QT Abnormal ECG When compared with ECG of 19-NOV-2023 14:42, Vent. rate has decreased BY 53 BPM Nonspecific T wave abnormality now evident in Anterior leads Confirmed by Ney Arreola ([id number]) on 11/24/2023 12:36:13 PM Referred By: REFERRED SELF Confirmed By:Dalton Arreola
--- NOTE | 2023-11-24 12:48 | Hospitalist Progress Note ---
Date of Service November 24, 2023 Assessment & Plan (1) Saddle pulmonary embolus: Plan: Saddle PE with acute cor pulmonale Associated with hypotension and right ventricular strain pattern Patient presented with sudden onset of chest discomfort along with shortness o f breath Patient was treated with half dose TNKase, followed by heparin drip Echocardiogram shows severely reduced RV systolic function. Heparin drip discontinued today. Patient was switched to p.o. Eliquis today 11/21. This PE was triggered by immobilization due to left knee fracture. Currently no chest pain or shortness of breath. Vital signs are stable. Saturating 95% on room air at rest Will need a two-step test prior to discharge transition to eliquis tolerates Eliquis, no hypoxia (2) Pre-diabetes: Plan: PreDM - History of preDM, not on any antiglycemics - A1C 6.2 (3) Closed fracture of left tibial plateau: Plan: L Knee Injury - Pt reports she had a left distal knee injury on November 01, reportedly a kneecap/lower leg fracture. Following with Dr. Leavitt CT left knee reviewed Orthopedics involved to determine weightbearing status PT/OT on board. Order from orthopedics says no weightbearing on the left leg. Her mobility and ambulation will need to be evaluated prior to discharge. awaiting rehab , has steps at her house (4) Morbid obesity with BMI of 50.0-59.9, adult: Plan: weight loss, diet Plan CODE STATUS: Full code DVT prophylaxis: Anticoagulated Admission and Anticipated Discharge Date Admission Date: November 19, 2023 Subjective Patient feels well. reports having chest pain earlier , resolved now reports knee pain Review of Systems Review of Systems: All systems reviewed & are unremarkable except as noted in Subjective Physical Exam 2 Physical Exam: head atraumatic neck supple chest CTA heart S1S2 regular abdomen soft, nt, nd, bs present extremities left leg immobilized Results & Data Results & Data Vital Signs (Past 12 Hours) Vital Signs Temp Pulse Pulse Resp BP Pulse Ox O2 Del Method 11/24/23 12:09 36.6 C 97 H 18 115/71 96 Room Air 11/24/23 10:40 88 11/24/23 07:22 36.6 C 96 H 18 111/75 92 Room Air 11/24/23 03:08 36.6 C 99 H 18 139/99 92 Room Air PG Care Time/CCT Total # of Minutes Spent Total Time Spent with Patient: Total time spent is greater than 50% in coordination of care (as documented) at patient's floor/unit and/or counseling patient: Coding Level of Care Code 61463 SUB INP/OBS CARE 3/50MIN Diagnoses Acute saddle pulmonary embolism with acute cor pulmonale I26.02 Chronicity: acute Acute cor pulmonale presence: with acute cor pulmonale Pre-diabetes R73.03 Closed fracture of left tibial plateau S82.142A Morbid obesity with BMI of 50.0-59.9, adult E66.01; Z68.43 (1) Saddle pulmonary embolus Chronicity: acute Acute cor pulmonale presence: with acute cor pulmonale Qualified Code(s): I26.02 - Saddle embolus of pulmonary artery with acute cor pulmonale
[2023-11-25] MEDS: CETIRIZINE HCL 10 MG TABLET PO SCH (08:23)
[2023-11-26 07:56] VITALS: BP 138/96; RESP 20; TEMP 97.3; O2SAT 96
--- NOTE | 2023-11-26 10:23 | Discharge Summary ---
Date of Service November 26, 2023 Admission HPI Per Admitting Provider 58yo F who presented with chest pain, shortness of breath, trop 560. Recommended for admission for acute PE. Seen at the bedside. She reports November 01 she slipped and fell to her left knee and broke part of her knee. Did not require cast but has been in an immobilizer since due to this injury. Is following with Dr. Leavitt at [facility], had an x- ray, and is pending a outpatient CT for reassessment. She does use tobacco products. She does not have a history of DC or heart disease. No known sleep apnea. She did have a blood clot after a knee injury as a teenager, think she may have been on an OCP at the time. BMI 51.3. She reports that at around 12-12 30 she had she had sudden onset of severe shortness of breath, some chest discomfort, and even conversation caused her to be more short of breath. She was initially hypotensive in the ER. She reports after laying back and being calm she felt a little better and her chest pain resolved, but remains with severe shortness of breath on exertion and conve rsation. She has no history of stroke. No surgery in the last 30 days. Denies history of spine surgery. No history of bleeding or bleeding problems and has never had a blood transfusion. No history of cancer, neoplasm, or AVMs to her knowledge. She reports her only medical issue is prediabetes. Blood pressure is usually normal to slightly elevated but is not on antihypertensives. Given her acute onset of symptoms, hypotension of 94/71, tachycardia, and saddle PE with evidence of heart strain thrombolysis was discussed with patient. Risk and benefits of full dose, half dose thrombolysis versus anticoagulation alone were discussed. Risks including bleeding, need for blood transfusion, bleeding from her left knee injury, and rare incidence of intracranial bleed were reviewed. Potential benefits including reduction of clot burden which may both improve blood pressure and dyspnea, with the caveat that while her blood pressure was not less than 90 was borderline on initial assessment and she is significantly dyspneic even with conversation were reviewed. On shared decision making patient would like to pursue half dose TNKase therapy. Medical History: Reviewed Medications: Reviewed Surgical History: Reviewed Family history: Reviewed Allergies: Reviewed Social History: History of tobacco use. Denies alcohol use Code Status: Full code Principal Diagnosis PE Discharge Exam head atraumatic neck supple chest CTA heart S1S2 regular abdomen soft, nt, nd, bs present extremities left leg immobilized Discharge Data Allergies Allergy/AdvReac Type Severity Reaction Status Date / Time No Known Allergies Allergy Unverified 11/20/23 11:40 Consultations 11/19/23 15:43 ED Decision to Admit Stat 11/19/23 16:30 Consult Risk Management Consultant Routine 11/21/23 14:20 Consult Orthopedic Surgery Routine Ordered Studies 11/19/23 14:47 CT angio chest PE protocol Stat 11/20/23 08:37 CT knee LT wo con Routine Hospital Course (1) Saddle pulmonary embolus: Saddle PE with acute cor pulmonale Associated with hypotension and right ventricular strain pattern Patient presented with sudden onset of chest discomfort along with shortness of breath Patient was treated with half dose TNKase, followed by heparin drip Echocardiogram shows severely reduced RV systolic function. Heparin drip discontinued today. Patient was switched to p.o. Eliquis today 11/21. This PE was triggered by immobilization due to left knee fracture. Currently no chest pain or shortness of breath. Vital signs are stable. Saturating 95% on room air at rest Will need a two-step test prior to discharge transition to eliquis tolerates Eliquis, no hypoxia (2) Pre-diabetes: PreDM - History of preDM, not on any antiglycemics - A1C 6.2 (3) Closed fracture of left tibial plateau: L Knee Injury - Pt reports she had a left distal knee injury on November 01, reportedly a kneecap/lower leg fracture. Following with Dr. Leavitt CT left knee reviewed Orthopedics involved to determine weightbearing status PT/OT on board. Order from orthopedics says no weightbearing on the left leg. Her mobility and ambulation will need to be evaluated prior to discharge. awaiting rehab , has steps at her house (4) Morbid obesity with BMI of 50.0-59.9, adult: weight loss, diet Plan CODE STATUS: Full code DVT prophylaxis: Anticoagulated Total Time Total Time Spent Total Time Spent (In Minutes): 45 Discharge Plan Discharge Items Reason For Visit: SADDLE PE Activity: As commented below Activity Comment: left leg no weight bearing Weightbearing: Left non-weightbearing Weightbearing Comment: at all times with walker/knee brace Non-emergency contact: Primary Care Provider Call non-emergency contact if: your symptoms worsen Follow-up/Referrals: Jett Leavitt, [Surgeon] - (Dr. Leavitt's office will reach out to you to schedule your follow up. Thank you! ) Analilia Mao CRNP [Primary Care Provider] - (I tried contacting your PCP; however, it went to voicemail. Please follow up with their office to schedule a follow up appointment.) Diet: Heart Healthy Addtl Attending Provider Instructions: continue Eliquis Addtl Tax Revenue Officer Provider Instructions: Orthopedic Instructions: - Do not put any weight on your left leg with ambulation. -Use walker at all times. -Continue knee brace at all times left lower extremity. -Ice and elevate the left lower extremity as needed for pain and swelling. -May do range of motion as instructed by Dr. Leavitt. -Continue Eliquis as prescribed. -Follow-up with Dr. Leavitt. May need to call office to schedule appointment. Inform him that she had the CT scan to determine further treatment of your left knee tibial plateau fracture. Pending Studies at Discharge: No Medications and DC Order Prescriptions: No Action No Known Home Medications Krames/Other Patient Handouts: Prediabetes, 5 Steps for Eating Healthier Admission Data Admit Date/Time: 11/19/23 16:30 Attending Provider: Shahla Abebe Admit Provider: Attila Rapp Primary Care Provider: Analilia Mao Other Providers: Attila Rapp; Kendall Pritchard; Attila Payne S; [facility] Coding Level of Care Code 99170 INP/OBS DISCH >30 MIN Diagnoses Acute saddle pulmonary embolism with acute cor pulmonale I26.02 Chronicity: acute Acute cor pulmonale presence: with acute cor pulmonale Pre-diabetes R73.03 Closed fracture of left tibial plateau S82.142A Morbid obesity with BMI of 50.0-59.9, adult E66.01; Z68.43
[2023-11-26 10:34] VITALS: PULSE 81
== END 2023-11-26 11:56 | DRG 175 ==
LOC: ED 14:38 → SUATTDRO 16:30 → 1E 16:30 → 2S 11-21 11:22